=== PATIENT | female | born 1955 | race Caucasian/White ===

== ENCOUNTER 2017-03-24 08:37 | Day surgery (SDC) | payer BC ==
--- NOTE | ~2017-03-24 | EGD ---
EGD REPORT [facility] [address] [address] NAME: ALCIRA STEWART : 55 STATUS : REG [facility]#: [id number] AGE: 61 ADM/REG DATE : 03/24/17 MR#: [id number] REPORT SERV DATE: 03/24/17 DICTATED BY: GIL LOZANO DATE: 03/24/17 REPORT STATUS : Draft TRANSCRIBED BY: [employer] DATE: 03/24/17 [facility] Patient Name: Alcira Stewart Date of : 1955 Attending MD: GIL LOZANO, Procedure Date No Time: 03/24/2017 Procedure: Colonoscopy Indications: Screening for colorectal malignant neoplasm, This is the patient's first colonoscopy Referring MD: KERRY MARCANO MD Medicines: Propofol per Anesthesia Complications: No immediate complications. Estimated blood loss: None. Procedure: Pre-Anesthesia Assessment: - ASA Grade Assessment: II - A patient with mild systemic disease. After I obtained informed consent, the scope was passed under direct vision. Throughout the procedure, the patient's blood pressure, pulse, and oxygen saturations were monitored continuously. The [facility] [id number] was introduced through the anus and advanced to the terminal ileum. The colonoscopy was performed with ease. The patient tolerated the procedure well. The quality of the bowel preparation was good. The appendiceal orifice, terminal ileum and rectum were photographed. Findings: The perianal and digital rectal examinations were normal. The terminal ileum appeared normal. Three sessile polyps were found in the descending colon (x1 6mm) and in the transverse colon (x2 4mm, 6mm). The polyps were 4 to 6 mm in size. These polyps were removed with a cold snare. Resection and retrieval were complete. Estimated blood loss: none. Multiple diverticula were found in the entire colon. Internal hemorrhoids were found during retroflexion and were small and Grade I (internal hemorrhoids that do not prolapse). Impression: - The examined portion of the ileum was normal. - Three 4 to 6 mm polyps in the descending colon and in the transverse colon. Resected and retrieved. - Diverticulosis in the entire examined colon. - Internal hemorrhoids. Recommendation: - Patient has a contact number available for emergencies. The signs and symptoms of potential delayed complications were discussed with the patient. Return to EGD REPORT [place] [id number] [facility] [place]. [address] NAME: ALCIRA STEWART : 55 STATUS : REG [facility]#: [id number] AGE: 61 ADM/REG DATE : 03/24/17 MR#: [id number] REPORT SERV DATE: 03/24/17 DICTATED BY: GIL LOZANO DATE: 03/24/17 REPORT STATUS : Draft TRANSCRIBED BY: [facility] DATE: 03/24/17 normal activities tomorrow. Written discharge instructions were provided to the patient. - High fiber diet. - Discharge patient to home (with escort). - Continue present medications. - Await pathology results. - Repeat colonoscopy in 5 years for surveillance. - Return to GI clinic to discuss pathology results with nurse practioner in 2-4 weeks. Procedure Code(s): --- Professional --- 05421, Colonoscopy, flexible, proximal to splenic flexure; with removal of tumor(s), polyp(s), or other lesion(s) by snare technique Diagnosis Code(s): --- Professional --- K64.0, First degree hemorrhoids K57.30, Diverticulosis of large intestine without perforation or abscess without bleeding D12.4, Benign neoplasm of descending colon D12.3, Benign neoplasm of transverse colon Z12.11, Encounter for screening for malignant neoplasm of colon CPT copyright 2013 [employer]. All rights reserved. The codes documented in this report are preliminary and upon stencil maker review may be revised to meet current compliance requirements. GIL LOZANO, 03/24/2017 10:40 AM This report has been signed electronically. Number of Addenda: 0 Note Initiated On: 03/24/2017 10:02 AM Scope Withdrawal Time 0 hours 11 minutes 19 seconds [address] [id number]
[~2017-03-24 08:37] MED LIST: ASA5GR PO; AVAPRO300 MG PO; LEXAPRO20 PO
== END 2017-03-24 23:59 | disposition home or self-care (01) ==
LOC: DMU 08:37
PROVIDERS: Internal Medicine Gastroenterology
PROC: 0DBL8ZX Excision of Transverse Colon, Via Natural or Artificial Opening Endoscopic, Diagnostic (ICD-10-PCS; 2017-03-24)
PROC: 0DBM8ZX Excision of Descending Colon, Via Natural or Artificial Opening Endoscopic, Diagnostic (ICD-10-PCS; principal; 2017-03-24 09:30)
DX: Z12.11 Encounter for screening for malignant neoplasm of colon (principal); K64.0 First degree hemorrhoids; K57.30 Diverticulosis of large intestine without perforation or abscess without bleeding; D12.4 Benign neoplasm of descending colon; D12.3 Benign neoplasm of transverse colon; F41.9 Anxiety disorder, unspecified; F32.9 Major depressive disorder, single episode, unspecified; Z88.0 Allergy status to penicillin; Z91.011 Allergy to milk products; Z98.890 Other specified postprocedural states
CPT/HCPCS: 88305